=== PATIENT | female | born 1980 | race Caucasian/White ===

== ENCOUNTER → 2017-12-09 | Outpatient (CLI) | payer OTHER | LOC: M.ULTRA 09:44 | DX: R22.2 Localized swelling, mass and lump, trunk (principal) ==

== ENCOUNTER 2018-12-02 12:28 | Emergency (ER) | payer OTHER ==
[~2018-12-02] VITALS: Ht 162.6 cm; Wt 115.7 kg
[2018-12-02 13:01] VITALS: BP 144/99
[2018-12-02] MEDS ORDERED: BACTROBAN CREAM30 G1 TOP (13:07)
[2018-12-02] MEDS ORDERED: METFORMIN HCL500 MG PO (13:08)
[2018-12-02] MEDS ORDERED: ZESTORETIC 20-1 EAC3 PO (13:09)
[2018-12-02] MEDS ORDERED: BACTRIM DS TAB1 EACH PO (13:09)
== END 2018-12-02 14:28 | disposition left against medical advice (07) ==
LOC: M.ERS 12:28
DX: Z53.21 Procedure and treatment not carried out due to patient leaving prior to being seen by health care provider (principal)